=== PATIENT | female | born 1955 | race Caucasian/White ===

== ENCOUNTER → 2018-05-17 | Outpatient (CLI) | payer OTHER ==
[~2018-05-17] MED LIST: ANTIBIOTIC O500 U/GM T; CLARITIN10 MG PO; COMBIGAN 0.2%-010 ML OP; CYCLOBENZAPRINE10 MG PO; GLIPIZIDE5 MG PO; GLUCOPHAGE500 M1 PO; LEVEMIR10 ML SC; LIDODERM 5% PATC1 EA TD; LIPITOR20 MG PO; LOTREL 5 MG-101 CAP PO; LUMIGAN50 DRP OPH; METOPROLOL SUC100 M1 PO; NEXIUM40 MG PO; ONE DAILY WOME1 EACH PO; SYNTHROID25 MCG PO; VICODIN ES 7.51 EACH PO; VITAMIN C500 M4 PO; VITAMIN D1000 IU PO; ZOLOFT100 MG PO
== END | disposition home or self-care (01) ==
LOC: RAD 05-12 02:17
DX: Z13.820 Encounter for screening for osteoporosis (principal); M81.0 Age-related osteoporosis without current pathological fracture; Z78.0 Asymptomatic menopausal state

== ENCOUNTER → 2024-07-11 | Outpatient (CLI) | payer MEDICARE ==
[2024-07-11 17:58] LABS: BUN 16 mg/dl (9-23); CHLORIDE 107 mmol/L (98-107); POTASSIUM 4.4 mmol/L (3.4-5.1)
== END | disposition home or self-care (01) ==
LOC: LAB 17:11
PROVIDERS: ATTEND Internal Medicine
DX: I10 Essential (primary) hypertension (principal); E87.5 Hyperkalemia; E11.9 Type 2 diabetes mellitus without complications